=== PATIENT | male | born 1965 | race Caucasian/White ===

== ENCOUNTER → 2021-07-22 | Outpatient (CLI) | payer MEDICARE, OTHER ==
[2021-07-22 12:24] LABS: BUN/CREATININE RATIO 15 (0-10)
== END ==
LOC: LAB 11:25
PROVIDERS: Nurse Practitioner Family
DX: G40.309 Generalized idiopathic epilepsy and epileptic syndromes, not intractable, without status epilepticus (principal)
CPT/HCPCS: 36415; 80053; 80201; G0480

== ENCOUNTER → 2022-01-26 | Outpatient (CLI) | payer MEDICARE, OTHER | LOC: EMI 10:27 | DX: R94.02 Abnormal brain scan (principal); G40.409 Other generalized epilepsy and epileptic syndromes, not intractable, without status epilepticus; G43.909 Migraine, unspecified, not intractable, without status migrainosus; R25.1 Tremor, unspecified | CPT/HCPCS: 70553; A9577 ==